=== PATIENT | female | born 1990 | race Two or more races ===

== ENCOUNTER 2022-09-01 23:30 | Emergency (ER) | payer MEDICAID ==
[2022-09-01 23:41] VITALS: BP 121/80
[2022-09-02] MEDS ORDERED: DEXAMETHASONE 10 MG/ML VIAL PO STA (00:29)
[2022-09-02] MEDS ORDERED: CHERRY SYRUP 10 ML UDC PO ONE (00:29)
[2022-09-02] MEDS ORDERED: oxyCODONE/ACET 5/325 Prepack 4 PO STA (00:30)
--- NOTE | 2022-09-02 00:30 | ED Physician Documentation ---
History of Present Illness - Stated complaint Stated Complaint: UPPER BACK TO R UPPER ARM PAIN - Chief complaint Chief Complaint: Back Pain - Additonal information Additional information: Patient presents with right-sided neck and shoulder pain. Shooting pains down the right side of her shoulder to mid forearm. Denies trauma. Reports this is happened in the past. Reports increased physical activity last few days stating that she went hiking. Took ibuprofen at home with minimal relief. Review of Systems Constitutional: denies: Fever Eyes: denies: Loss of vision Ears: denies: Loss of hearing Nose: denies: Rhinorrhea / runny nose Cardiac: denies: Chest pain / pressure Respiratory: denies: Dyspnea GI: denies: Abdominal Pain Skin: denies: Rash Musculoskeletal: reports: Neck pain. denies: Back pain PD PAST MEDICAL HISTORY - Present Medications Home Medications: Ambulatory Orders Medication Instructions Recorded Confirmed Acetaminophen [Tylenol] 650 mg PO Q6H PRN #30 tab 09/02/22 Ibuprofen [Motrin] 800 mg PO Q8H PRN #30 tablet 09/02/22 methocarbamoL [Robaxin] 500 mg PO Q6H PRN #20 tablet 09/02/22 - Allergies Allergies/Adverse Reactions: Allergies Allergy/AdvReac Type Severity Reaction Status Date / Time No Known Drug Allergies Allergy Verified 09/01/22 23:41 PD ED PE NORMAL - General General: Alert and oriented X 3 - HEENT HEENT: Atraumatic - Neck Neck: Other (There is no point tenderness to the cervical spine. There is diffuse tenderness to the right-sided trapezius muscle. Normal frame bander strength, normal flexion, extension in the right upper extremity.) Results - Vitals Vitals: Vital Signs - 24 hr 09/01/22 23:30 Temperature 36.4 C L Heart Rate 109 H Respiratory 18 Rate Blood Pressure 121/80 O2 Saturation 99 PD Medical Decision Making - ED course Complexity details: d/w patient ED course: Patient presents with right-sided neck pain of a shooting nature that involves the right upper forearm. Neurovascularly intact. No history of trauma. Imaging is considered however given lack of history of trauma is low yield. Likely etiology is cervical radiculopathy. Patient given dose Decadron, Percocet and provided with take-home pack as well as prescription for muscle relaxer and encouragement for regular use ibuprofen and acetaminophen. Encourage careful follow-up with primary care. Return precautions given. Departure - Departure Disposition: 01 Home, Self Care Clinical Impression: Cervical radiculopathy Instructions: ED Spasm Neck No Injury Prescriptions: Ibuprofen [Motrin] 800 mg PO Q8H PRN #30 tablet PRN Reason: PAIN &/OR FEVER methocarbamoL [Robaxin] 500 mg PO Q6H PRN #20 tablet PRN Reason: muscle spasm Acetaminophen [Tylenol] 650 mg PO Q6H PRN #30 tab PRN Reason: Pain Comments: Thank you for allowing us to care for you today at [facility]. I have written prescriptions for a muscle relaxer as well as medication you can take for pain control. I do recommend careful follow-up with your primary care doctor. If it anytime you develop new or worsening symptoms please not hesitate to return.
== END 2022-09-02 00:44 | disposition home or self-care (01) ==
LOC: ED 23:30
DX: M54.12 Radiculopathy, cervical region (principal)
CPT/HCPCS: 99283; A9270